=== PATIENT | male | born 1955 | race Caucasian/White ===

== ENCOUNTER 2023-12-07 08:35 | Emergency (ER) | payer MEDICARE, SELFPAY ==
[2023-12-07 08:37] VITALS: BP 205/95; PULSE 81; RESP 18; TEMP 36.7; O2SAT 99; BMI 31.9
--- NOTE | 2023-12-07 08:48 | ED.GENADULT ---
HPI - General Adult General Date Seen: 12/07/23 Chief complaint: Ear/Nose/Throat Problem Stated complaint: Pain in both ears Time Seen by Provider: 12/07/23 08:40 Source: patient Mode of arrival: ambulatory Limitations: no limitations History of Present Illness HPI narrative: Patient is a 67-year-old man who notes for the past week his ears have felt plugged, the left is particularly bad over the last day or 2. It is not exactly painful he does feels like he can not clear his ears. No upper respiratory infection symptoms, no fevers, no history of similar symptoms. He noted that his blood pressure was high here and he said ?it always is. He was placed on blood pressure medicine long time ago but he said he stopped taking it because it was ?hard to get. He does not have a primary clinic. Denies other medical history. Related Data Home Medications ?Medication ?Instructions ?Recorded ?Confirmed No Known Home Medications 12/07/23 12/07/23 Allergies Allergy/AdvReac Type Severity Reaction Status Date / Time No Known Drug Allergies Allergy Verified 12/07/23 08:41 PFSH PFSH Social History Non-prescribed substance use: denies use Exam Narrative: Exam Narrative: Vital signs reviewed, hypertensive In general, an alert, comfortable-appearing man. ENT: Bilateral TMs are occluded by cerumen. Const: Vital Signs, click to edit/add: Vital Signs - 24 hr 12/07/23 08:37 Temperature 98.1 F Pulse Rate [Pulse Oximeter] 81 Respiratory Rate 18 Blood Pressure [Ri ght Upper Arm] 205/95 H Pulse Oximetry 99 Oxygen Delivery Me thod Room Air Documenting provider has reviewed patient's vital signs: yes Course Course ED Course: Will irrigate his ears, I suspect this will relieve his your symptoms. With regard to his blood pressure, I would recommend that he follow up in clinic and restart on antihypertensives. Risks of prolonged hypertension were discussed with him. He lives in [place], will give phone number for clinic follow-up. Vital Signs Vital signs: Initial Vital Signs Temperature 98.1 F 12/07/23 08:37 Temperature Source Temporal Artery Scan 12/07/23 08:37 Pulse Rate 81 12/07/23 08:37 Respiratory Rate 18 12/07/23 08:37 Blood Pressure 205/95 H 12/07/23 08:37 Blood Pressure Mean 131 H 12/07/23 08:37 Blood Pressure Position Sitting 12/07/23 08:37 Pulse Oximetry 99 12/07/23 08:37 Oxygen Delivery Method Room Air 12/07/23 08:37 Vital Signs Temperature 98.1 F 12/07/23 08:37 Pulse Rate 81 12/07/23 08:37 Respiratory Rate 18 12/07/23 08:37 Blood Pressure 205/95 H 12/07/23 08:37 Pulse Oximetry 99 12/07/23 08:37 Oxygen Delivery Method Room Air 12/07/23 08:37 Temperature 98.1 F 12/07/23 08:37 Pulse Rate 81 12/07/23 08:37 Respiratory Rate 18 12/07/23 08:37 Blood Pressure 205/95 H 12/07/23 08:37 Pulse Oximetry 99 12/07/23 08:37 Oxygen Delivery Method Room Air 12/07/23 08:37 Discharge Plan Discharge Clinical Impression: Cerumen impaction, High blood pressure Patient Disposition: Home, Self-Care Condition: Improved Instructions: Chronic Hypertension (DC) Additional Instructions: Over the [facility], high blood pressure increases your risk of stroke, heart disease, kidney disease among other conditions. I would strongly recommend that you follow-up in clinic to discuss management of your high blood pressure. If you have further trouble with her ears, you can follow-up with ENT, . Follow up appointment is scheduled at the [facility] on 12/10 with an 11:30am appointment time. Please check in at 11:15am to complete paperwork. If you have any questions or need to reschedule, please call [phone]. [facility] [address] [place] [address] Prescriptions: No Action No Known Home Medications Stand Alone Forms: Family [facility] [employer] Info Instructions
== END 2023-12-07 09:36 | disposition home or self-care (01) ==
LOC: ED 09:34
PROVIDERS: Emergency Provider Emergency Medicine
DX: H61.23 Impacted cerumen, bilateral (principal); I10 Essential (primary) hypertension
CPT/HCPCS: 99283